=== PATIENT | male | born 1955 | race Caucasian/White ===

== ENCOUNTER 2017-12-23 19:00 | Inpatient (IN) | payer BC ==
[2017-12-23] MEDS ORDERED: ONDANSETRON HCL/PF 4 MG/2 ML VIAL IV ONE (20:00)
[2017-12-23] MEDS ORDERED: ONDANSETRON HCL/PF 4 MG/2 ML VIAL ONE (20:17)
[2017-12-23] MEDS ORDERED: MAGNESIUM HYDROXIDE 30 ML UDC PO PRN (22:30)
[2017-12-23] MEDS ORDERED: HYDROCODONE/APAP 5/325MG 1 EACH TABLET PO PRN (22:30)
[2017-12-23] MEDS ORDERED: ONDANSETRON HCL/PF 4 MG/2 ML VIAL IVP PRN (22:30)
[2017-12-23] MEDS ORDERED: Z GUARD REMEDY 2 OZ OINT TP PRN (22:30)
[2017-12-23] MEDS ORDERED: ACETAMINOPHEN 325 MG TABLET PO PRN (22:30)
[2017-12-23] MEDS ORDERED: MAG HYDROX/AL HYDROX/SIMETH 30 ML UDC PO PRN (22:30)
[2017-12-23] MEDS: PANTOPRAZOLE 40 MG VIAL IV SCH (23:06)
[2017-12-23] MEDS: IV NS 0.9% 1,000 ML IV PRN (23:07)
[2017-12-23] MEDS ORDERED: ZINC220C8 PO (23:46)
[2017-12-23] MEDS ORDERED: ASPI-1152 PO (23:46)
[2017-12-23] MEDS ORDERED: PANT40TA4 PO (23:46)
[2017-12-23] MEDS ORDERED: ATOR80TA PO (23:46)
[2017-12-23] MEDS ORDERED: AMLO10TA6 PO (23:46)
[2017-12-23] MEDS ORDERED: METO50TA16 PO (23:46)
[2017-12-23] MEDS ORDERED: LISI-607 PO (23:46)
[2017-12-23] MEDS ORDERED: APIX5TAB PO (23:46)
[2017-12-23] MEDS ORDERED: HYDR-552 PO (23:46)
[2017-12-23] MEDS ORDERED: QUET25TA PO (23:46)
[2017-12-23] MEDS ORDERED: INSU100C10 SQ (23:46)
[2017-12-23] MEDS ORDERED: INSU100V7 SQ (23:46)
[2017-12-23] MEDS ORDERED: ASCO500T8 PO (23:46)
[2017-12-24] MEDS ORDERED: MORPHINE SULFATE INJ 2 MG/ML DISP.SYRIN IV PRN (01:30)
[2017-12-24] MEDS ORDERED: DEXTROSE 50%-WATER 50 ML DISP.SYRIN IV PRN (01:30)
[2017-12-24] MEDS: INSULIN REGULAR, HUMAN 100 UNIT/ML 3 ML VIAL SQ PRN (06:01)
[2017-12-24] MEDS: BLOOD SUGAR DIAGNOSTIC 1 EACH STRIP IN SCH ×4 (06:06→22:17)
[2017-12-24] MEDS: PANTOPRAZOLE 40 MG VIAL IV SCH ×2 (08:38→16:59)
[2017-12-24] MEDS: Magnesium 1GM/D5W 100ML PREMIX 100 ML IV SCH ×2 (14:23→15:29)
[2017-12-24] MEDS ORDERED: LORAZEPAM INJ 2 MG/ML VIAL IV ONE (18:05)
[2017-12-24] MEDS: IV NS 0.9% 1,000 ML IV PRN (18:46)
[2017-12-25] MEDS: IV NS 0.9% 1,000 ML IV PRN (05:04)
[2017-12-25] MEDS: BLOOD SUGAR DIAGNOSTIC 1 EACH STRIP IN SCH ×3 (07:54→16:35)
[2017-12-25] MEDS: PANTOPRAZOLE 40 MG VIAL IV SCH ×2 (09:23→16:34)
[2017-12-25] MEDS ORDERED: PANT40TA2 PO (09:37)
[2017-12-25] MEDS: INSULIN REGULAR, HUMAN 100 UNIT/ML 3 ML VIAL SQ PRN (16:35)
== END 2017-12-25 18:00 | DRG 377 ==
DX: K29.01 Acute gastritis with bleeding (principal); E43 Unspecified severe protein-calorie malnutrition; E11.22 Type 2 diabetes mellitus with diabetic chronic kidney disease; I69.354 Hemiplegia and hemiparesis following cerebral infarction affecting left non-dominant side; K22.70 Barrett's esophagus without dysplasia; E11.65 Type 2 diabetes mellitus with hyperglycemia; I48.2 Chronic atrial fibrillation; E88.09 Other disorders of plasma-protein metabolism, not elsewhere classified; D72.829 Elevated white blood cell count, unspecified; E78.5 Hyperlipidemia, unspecified; I12.9 Hypertensive chronic kidney disease with stage 1 through stage 4 chronic kidney disease, or unspecified chronic kidney disease; N18.9 Chronic kidney disease, unspecified; I25.10 Atherosclerotic heart disease of native coronary artery without angina pectoris; K29.70 Gastritis, unspecified, without bleeding; K44.9 Diaphragmatic hernia without obstruction or gangrene; Z87.891 Personal history of nicotine dependence; Z91.81 History of falling; Z68.24 Body mass index [BMI] 24.0-24.9, adult; Z79.4 Long term (current) use of insulin